=== PATIENT | female | born 1960 | race Caucasian/White ===

== ENCOUNTER 2023-09-29 16:08 | Emergency (ER) | payer OTHER, SELFPAY ==
[2023-09-29] VITALS (8 sets, daily range): BP systolic 137–156; BP diastolic 62–83; BMI 41.7
--- NOTE | 2023-09-29 16:24 | ED.GENMED ---
History of Present Illness
General
Chief Complaint: Chest Pain
Source: patient
Exam Limitations: none
Time Seen by Provider: 09/29/23 16:14
Nursing documentation reviewed up to this point in time: agreed with
History of Present Illness
History of Present Illness:
This is a 63-year-old female with a past medical history of prediabetes presenting to the emergency department today with concerns of an episode of chest pain. 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
she said she started to notice the pain. It starts in the epigastric region and goes up to chest. Patient states that she normally gets this pain when she gets gas and states that the pain will relieve with gas. Patient states that the pain was
described as sharp and lasted about an hour. Patient denies any radiation of the pain. Patient states that she then subsequently mentioned this to one of the people in the classroom he became very concerned and brought her to the nurse. They took
her blood pressure and noticed that her blood pressure was elevated, systolically 200. She was given an aspirin at the nurse's office, this did not help the pain. Patient states that as the ambulance is coming to pick her up, the pain resolved.
Patient denies any family history of cardiac disease. Patient denies any personal history of blood pressure problems, has never had to take anything to control her blood pressure. Patient's denies any current smoking or drug use. Patient states
that she does have 2 glasses of wine to drink daily. Patient denies any dizziness. Patient denies any nausea or vomiting, abdominal pain. Patient completely asymptomatic now and states that she feels back to her normal self. Patient also states
that she noticed some blood on her underwear today. Patient denies any burning with urination, any vaginal pain, any trauma to the area, patient does have a follow-up appointment with her web site project manager in October.
Past History
Past History
ED Past Medical History: None; Negative Asthma, HTN, Hypercholesterolemia or NIDDM
ED Past Surgical History: Cholecystectomy, and Other
Social History
Tobacco: Non-smoker
Alcohol: Daily (Wine 2 glasses of 5oz each)
Drug: None
Personal:
Living: with family
Family History
Family History: Unable to obtain (non-contributory)
Review of Systems
Review of Systems
All Other Systems: ROS reviewed and negative except as documented in HPI and ROS
Phy Exam
Physical Exam
Physical Exam:
General: Patient is well appearing and in no acute distress; non-toxic
Skin: Warm and dry, no rashes or lesions
Head: Normocephalic, atraumatic
Eyes: Sclera non-icteric. EOMs intact. PERRLA.
Cardiac: Regular rate and rhythm, no murmurs. No tenderness to palpation of the external chest wall.
Peripheral Vascular: No lower extremity swelling or edema.
Pulm: Normal respiratory effort, no wheezes, rales, rhonchi.
Abdomen: No abdominal tenderness to palpation, no palpable masses.
Neuro: CN II-XII intact, no focal neurologic deficits.
Psychiatric: Appropriate mood and affect.
Scores
Heart Score for Chest Pain Patients
STEMI patient?: No
History: Slightly or Non-Suspicious
ECG: Normal
Age: >45 - <65 years
Risk Factors: 1 or 2 Risk Factors
Troponin: </= Normal Limit
Heart Score for Chest Pain Patients: 2
Heart Score Risk: 2.5% MACE over next 6 weeks
Course
Orders/Labs/Results
Orders:
Orders
09/29/23 16:26
Electrocardiogram (*1) Urgent
Reason for Study: Chest Pain
EKG- Treatment ONCE
09/29/23 16:34
Basic Metabolic Panel Urgent
Complete Blood Count/With Diff Urgent
Troponin I Urgent
Urinalysis Reflex To Culture Urgent
Date Specimen was Collected: 09/29/23
Time Specimen was Collected: 16:33
09/29/23 19:50
Troponin I Urgent
09/29/23 19:58
Electrocardiogram (*1) Urgent
Reason for Study: Chest Pain
EKG- Treatment ONCE
Abnormal Lab Results
09/29/23
16:34
MPV 11.0 H fL
(7.4-10.4)
Creatinine 0.5 L mg/dL
(0.6-1.0)
Glucose 145 H mg/dl
(70-99)
09/29/23 16:34
09/29/23 16:34
Vital Signs
Initial and Last Documented VS:
Initial Vital Signs
Pulse Ox
98
09/29/23 16:19
Last Documented Vital Signs
Temp Pulse Resp BP Pulse Ox
97.9 F 86 19 149/71 97
09/29/23 16:27 09/29/23 18:45 09/29/23 18:45 09/29/23 18:00 09/29/23 18:45
MDM/Problems Addressed
Differential Diagnosis Includes:
Differentials include ACS, GERD, gastroenteritis, gastritis
MDM/Problems Addressed:
Chest pain
Chronic conditions affecting care:
Per patient, no past medical history
*Pulse Oximetry
Patient hypoxic: no
*EKG
Interpreted by ED Provider?: Yes
EKG Intrepretation Date: 09/29/23
Interpretation: normal
Heart Rate: 99
Rate: normal
Rhythm: sinus
Lostant: normal axis
Interval: normal interval, normal QT interval and normal IA interval
QRS Pattern: normal QRS
Ischemia: no ischemia
*Customs Manager Interpretation
Rate: normal
Interpretation: normal
Heart Rate: 89
Rhythm: sinus
*Critical Care Note
Total Time (30-74mins, 75-104mins- exclusive of procedures): Not Applicable
Data Reviewed
Review of Other/Old Records Reveals: Records (Reviewed ER physician documentation from 12/03/2022 where patient had gastritis)
Patient Management
Escalation/DeEscalation of care consider admission/obs:
This is a 63-year-old female with a past medical history of prediabetes presenting to the emergency department today with concerns of an episode of chest pain. 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
she said she started to notice the pain. Also had epigastric abdominal pain with it, patient said she normally has this sensation when she has gas. She subsequently had gas and the pain relieved and now has no symptoms and no concerns other than
her blood pressure being elevated.
Patient is very well appearing on exam, vitals stable, cardiac workup negative, repeat troponin negative. Considering patient has no symptoms, unremarkable workup, she is stable for discharge--did discuss importance of blood pressure management,
patient states she will follow up with primary. Considering pt's cardiac risk factors of hx of alcohol use, obesity, pre-diabetes, I did give her a referral for cardiology for stress testing and to establish care.
ED Attending Note
-
Portions of this chart may have been created with voice recognition software.� Occasional wrong word or��sound alike� substitutions may have occurred due to the inherent limitations of voice recognition software.
Discharge Plan
Departure
Patient with high blood pressure during this ER visit?: Yes
Condition: Good
Discharge Problem:
Chest pain, Acute epigastric pain
Instructions: Chest Pain CBC Follow Up, BLOOD PRESSURE
Prescriptions:
No Action
ibuprofen 600 MG tablet
600 mg PO Q6 Qty: 20 0RF
sucralfate [Carafate] 1 GM/10 ML suspension
1 gm PO QIDPRN PRN (Reason: upper abdominal pain) Qty: 560 0RF
pantoprazole 40 MG tablet,delayed release (DR/EC)
40 mg PO DAILY Qty: 30 0RF
pantoprazole [Protonix] 40 mg tablet,delayed release (DR/EC)
40 mg PO DAILY Qty: 10 0RF
Referrals:
Alton,Viri, PA [Family Provider] -
Latrell Taylor MD [Active] - Call in 1-3 days for appt
Activity Restrictions/Additional Instructions:
Please continue to monitor your symptoms. Please given you a referral to see a facilities engineering manager. Please call the attached number to schedule an appointment. Please state that you were seen here in the emergency department. Please follow-up with your
primary care provider regarding your elevated blood pressure.
Please return to the emergency department should you experience a recurrence or worsening of your symptoms, shortness of breath, dizziness, lightheadedness, syncopal episodes, confusion, weakness, facial droop, difficulty speaking, or any other
concerning signs or symptoms.
Interventions
Interventions:
*Risk Screen - Suicide Last Done: 09/29/23 16:27
*General Assessment Last Done: 09/29/23 16:31
*Neglect/Abuse Screening Last Done: 09/29/23 16:31
ED- Fall Risk Assessment Last Done: 09/29/23 16:31
*ED COVID-19 Vaccine History Last Done: 09/29/23 16:31
ED- Cardiac Assessment Last Done: 09/29/23 16:31
Discharge Date and Time
Print Language: ARABIC
[2023-09-29 16:48] LABS: % Basophils 0.3 % (0-2); % Eosinophils 1.5 % (0-6); % Immature Granulocytes 0.5 % (0-0.5); % Lymphocytes 28.1 % (20.5-51.1); % Monocytes 5.3 % (1.7-9.3); % Neutrophils 64.3 % (42.2-75.2); Absolute Eosinophils 0.1 10^3/uL (0-0.7); Absolute Lymphocytes 1.7 10^3/uL (1.2-3.4); Absolute Monocytes 0.3 10^3/uL (0.1-0.6); Hematocrit 38.1 % (37.0-47.0); Mean Corp Hgb Conc. 34.1 g/dL (33.0-37.0); Mean Corpuscular Hgb 28.8 pg (27.0-31.0); Mean Corpuscular Volume 84.5 fL (81.0-99.0); Nucleated Red Blood Cells % 0 %; Platelet Count 184 10^3/uL (130-400); Red Blood Cell Count 4.51 10^6/uL (4.20-5.40); Red Cell Dist. Width 12.6 % (11.5-14.5); White Blood Cell Count 6.2 10^3/uL (4.8-10.8)
[2023-09-29 16:57] LABS: Urine Albumin Negative (Neg - Trace); Urine Bilirubin Negative (Negative); Urine Character Slightly Cloudy (Clear); Urine Color Yellow; Urine Glucose Negative (Negative); Urine Ketone Negative (Negative); Urine Leukocyte Negative (Negative); Urine Nitrite Negative (Negative); Urine Occult Blood Negative (Negative); Urine Specific Gravity 1.025 (<1.030); Urine Urobilinogen Negative (Neg - 1+)
[2023-09-29 17:10] LABS: Blood Urea Nitrogen 17 mg/dl (7-17); Calcium 9.2 mg/dl (8.4-10.2); Carbon Dioxide 23 mmol/L (22-30); Chloride 105 mmol/L (98-107); Estimated Creatinine Clearance 124 ml/min; Glucose 145 mg/dl (70-99); Sodium 137 mmol/L (135-145); eGFR > 60.00
[2023-09-29 17:13] LABS: Troponin I < 0.012 ng/ml
[2023-09-29 20:31] LABS: Troponin I < 0.012 ng/ml
== END 2023-09-29 21:30 | disposition home or self-care (01) ==
LOC: EMR 16:08
PROVIDERS: Physician Assistant; EMERGENCY PHYSICIAN Emergency Medicine; FAMILY PHYSICIAN Physician Assistant Medical
DX: R10.13 Epigastric pain (principal); R07.89 Other chest pain; R73.03 Prediabetes; Z87.891 Personal history of nicotine dependence; Z86.16 Personal history of COVID-19; Z90.49 Acquired absence of other specified parts of digestive tract
CPT/HCPCS: 99284; 80048; 81003; 84484; 85025; 93005

== ENCOUNTER → 2023-10-10 07:08 | Outpatient (REF) | payer OTHER, SELFPAY ==
--- NOTE | 2023-10-10 08:20 | CARDSERVLU ---
Echocardiogram with Lumason completed after protocol screening completed. Allergies verified.
Patent IV site: _Rt AC____
IV site flushed with 0.9% NaCl pre and post administration.
Diluted bolus method utilized to enhance visualization of ventricular rosado.
Total volume given: __2.0__ mL
Patient tolerated all procedures well without complications.
#22 lata placed Rt AC. Lumason given. INT removed. dsg applied and pressure held.
== END ==
LOC: RCS 07:08
PROVIDERS: ATTENDING PHYSICIAN Internal Medicine Cardiovascular Disease; FAMILY PHYSICIAN Physician Assistant Medical
DX: R00.0 Tachycardia, unspecified (principal); R07.89 Other chest pain; R10.13 Epigastric pain
CPT/HCPCS: 93017; 93306; Q9950

== ENCOUNTER 2023-10-28 17:04 | Emergency (ER) | payer OTHER, SELFPAY ==
[2023-10-28 17:11] VITALS: BP 174/95
[2023-10-28 17:42] LABS: % Basophils 0.4 % (0-2); % Eosinophils 0.3 % (0-6); % Immature Granulocytes 0.4 % (0-0.5); % Lymphocytes 4.6 % (20.5-51.1); % Monocytes 6.2 % (1.7-9.3); % Neutrophils 88.1 % (42.2-75.2); Absolute Lymphocytes 0.4 10^3/uL (1.2-3.4); Absolute Monocytes 0.5 10^3/uL (0.1-0.6); Absolute Neutrophils 6.9 10^3/uL (1.4-6.5); Hematocrit 38.9 % (37.0-47.0); Hemoglobin 13.6 g/dL (12.0-16.0); Mean Corpuscular Hgb 29.1 pg (27.0-31.0); Mean Corpuscular Volume 83.1 fL (81.0-99.0); Mean Platelet Volume 10.4 fL (7.4-10.4); Nucleated Red Blood Cells % 0 %; Platelet Count 170 10^3/uL (130-400); Red Blood Cell Count 4.68 10^6/uL (4.20-5.40); Red Cell Dist. Width 12.8 % (11.5-14.5); White Blood Cell Count 7.8 10^3/uL (4.8-10.8)
[2023-10-28 17:46] VITALS: BP 140/81
[2023-10-28 17:59] LABS: ALT (SGPT) 33 U/L (0-35); AST (SGOT) 31 U/L (14-36); Albumin 4.4 g/dl (3.5-5.0); Alkaline Phosphatase 58 U/L (38-126); Blood Urea Nitrogen 13 mg/dl (7-17); Calcium 9.2 mg/dl (8.4-10.2); Carbon Dioxide 26 mmol/L (22-30); Chloride 99 mmol/L (98-107); Glucose 124 mg/dl (70-99); Lipase 54 U/L (23-300); Sodium 134 mmol/L (135-145); Total Bilirubin 0.6 mg/dl (0.2-1.3); Total Protein 6.9 g/dl (6.3-8.2); eGFR > 60.00
[2023-10-28 18:00] VITALS: BP 150/86
[2023-10-28 18:00] LABS: Troponin I < 0.012 ng/ml
--- NOTE | 2023-10-28 18:15 | ED.GENMED ---
History of Present Illness
General
Chief Complaint: Heart Rate Problem
Time Seen by Provider: 10/28/23 17:42
History of Present Illness
History of Present Illness:
63-year-old female presenting with fever, chills, congestion starting today. Patient states that she was at her PCPs office and was diagnosed with COVID. Patient states that she is also been having left upper quadrant abdominal pain for the past 2
weeks after she had an echocardiogram patient states the multi care technician had to press hard in the area to obtain the views. Patient reports bilateral flank pain starting this morning but none now. Patient denies nausea, vomiting, diarrhea, chest pain
or shortness of breath. Patient states that she has urinary urgency but no dysuria or hematuria.
Past History
Past History
ED Past Medical History: None; Negative Asthma, HTN, Hypercholesterolemia or NIDDM
ED Past Surgical History: Cholecystectomy, and Other
Social History
Tobacco: Non-smoker
Alcohol: Daily (Wine 2 glasses of 5oz each)
Drug: None
Personal:
Living: with family
Family History
Family History: Unable to obtain (non-contributory)
Phy Exam
Physical Exam
Physical Exam:
General: Alert, no acute distress
Head: NCAT
Eyes: clear conjunctiva
Neck: supple
Cardiac: Tachycardic, regular rhythm, no murmur
Chest wall: Left lower rib tenderness to palpation. No overlying erythema or ecchymosis
Lungs: clear to auscultation bilaterally. No wheezes, rales, or rhonchi. Speaking full unlabored sentences. No respiratory distress.
Abdomen: soft, nondistended nontender. No rebound or guarding. No CVA tenderness bilaterally
MSK: no lower extremity edema bilaterally. No deformity
Skin: warm, dry
Neuro: Alert and oriented x3. no focal deficits
Course
Orders/Labs/Results
Orders:
Orders
10/28/23 17:26
CMP [Comprehensive Metabolic Panel] Urgent
Complete Blood Count/With Diff Urgent
Lipase Urgent
Comment: ADD ON
Troponin I Urgent
10/28/23 17:33
EKG [Electrocardiogram (*1)] Urgent
Reason for Study: Abdominal Pain
10/28/23 17:39
Add On- LAB Urgent
Tests Added?: lipase
10/28/23 17:44
CXR Port [CR Chest Portable - 1 View] Urgent
Comment:
Reason For Exam: covid, sob
Reason Study Needs to be Portable: Other
10/28/23 18:13
Ibuprofen [Motrin] 800 mg PO NOW STA
10/28/23 18:15
0.9% Sodium Chloride 1000 ml [Nss] 1,000 ml IV BOLUS
10/28/23 18:39
UA Reflex to Culture [Urinalysis Reflex To Culture] Urgent
Date Specimen was Collected: 10/28/23
Time Specimen was Collected: 18:16
10/28/23 19:42
0.9% Sodium Chloride 1000 ml [Nss] 1,000 ml IV BOLUS
10/28/23 21:52
Acetaminophen [Tylenol] 1,000 mg .ROUTE .STK-MED ONE
Acetaminophen [Tylenol] 1,000 mg PO NOW STA
Abnormal Lab Results
10/28/23
17:26
Absolute Neuts (auto) 6.9 H 10^3/uL
(1.4-6.5)
Absolute Lymphs (auto) 0.4 L 10^3/uL
(1.2-3.4)
Neutrophils % 88.1 H %
(42.2-75.2)
Lymphocytes % 4.6 L %
(20.5-51.1)
Sodium 134 L mmol/L
(135-145)
Glucose 124 H mg/dl
(70-99)
10/28/23 17:26
10/28/23 17:26
Vital Signs
Initial and Last Documented VS:
Initial Vital Signs
Temp Pulse Resp BP Pulse Ox
100.2 F 142 18 174/95 96
10/28/23 17:11 10/28/23 17:11 10/28/23 17:11 10/28/23 17:11 10/28/23 17:11
Last Documented Vital Signs
Temp Pulse Resp BP Pulse Ox
98.6 F 99 19 102/64 96
10/28/23 20:07 10/28/23 21:37 10/28/23 21:30 10/28/23 21:00 10/28/23 21:30
MDM/Problems Addressed
Differential Diagnosis Includes:
Patient presents to the Emergency Department with fever, chills, congestion____
Number and Complexity of Problems Addressed at the Encounter
� Chronic conditions affecting care:
� Acute Exacerbation and/or Progression of Chronic Illness:
� Differential Diagnosis includes: COVID, dehydration, UTI, pyelonephritis
Amount and/or Complexity of Data to be Reviewed and Analyzed
� I performed an independent evaluation of and my interpretation is:
EKG: EKG shows sinus tachycardia at 130bpm with NM 136 QTc 441 no acute ischemic changes
CT:
Xrays: CXR clear with no focal infiltrate or consoldiation
Laboratory Studies: UA negative for UTI. Lipase, troponin, WBC within normal limits
Other:
� Review of other/old records reveals:
� Clinical information was obtained by an independent historian:
� Prescriptions/Medications Considered but not given:
� Further testing considered but not performed:
Risk of Complications and/or Morbidity or Mortality of Patient Management
� Social Determinants of health affecting care:
� Discussion with other providers (PCP, Hospitalists, Consultants, etc):
� Escalation of care including admission/observation vs risk of discharge considered: 63yoF presenting with fever, chills, diffuse body aches and congestion starting today. Patient seen at PCP, diagnosed with COVID and sent to the ER for further
evaluation. Patient reports left lower rib pain ever since she received echocardiogram 2 weeks ago. Patient denies chest pain or abdominal pain. On arrival, patient tachycardic to 130 with low grade fever. Workup reviewed, CXR clear with no focal
infiltrate or consolidation, labs otherwise unremarkable, UA shows no UTI. Heart rate improved to 99bpm with fluids and ibuprofen. SpO2 within normal limits. Discussed results with patient at bedside, stable for discharge with Paxlovid and PCP
follow up.
*Critical Care Note
Total Time (30-74mins, 75-104mins- exclusive of procedures): Not Applicable
ED Attending Note
-
Portions of this chart may have been created with voice recognition software.� Occasional wrong word or��sound alike� substitutions may have occurred due to the inherent limitations of voice recognition software.
Discharge Plan
Departure
Patient Disposition: Home (Routine Discharge)
Date of Disposition: 10/28/23
Time of Disposition: 21:43
Patient with high blood pressure during this ER visit?: Yes
Discharge Problem:
COVID
Instructions: BLOOD PRESSURE
Prescriptions:
New
Paxlovid 300 mg (150 mg x 2)-100 mg tablets,dose pack
See Rx Instructions .ROUTE .COMPLEX Qty: 30 0RF
Rx Instructions:
take TWO 150 mg tablets of nirmatrelvir with ONE 100 mg tablet of ritonavir twice daily for 5 days
No Action
ibuprofen 600 MG tablet
600 mg PO Q6 Qty: 20 0RF
sucralfate [Carafate] 1 GM/10 ML suspension
1 gm PO QIDPRN PRN (Reason: upper abdominal pain) Qty: 560 0RF
pantoprazole 40 MG tablet,delayed release (DR/EC)
40 mg PO DAILY Qty: 30 0RF
pantoprazole [Protonix] 40 mg tablet,delayed release (DR/EC)
40 mg PO DAILY Qty: 10 0RF
Referrals:
Abi Rosales PA-C [Family Provider] -
Activity Restrictions/Additional Instructions:
Take tylenol 975mg every 6 hours and/or ibuprofen 800mg every 8 hours with food as needed for pain
Take Paxlovid as prescribed
Follow up with primary care doctor within 1 week
Return to the emergency department for shortness of breath or new/worsening symptoms
Interventions
Interventions:
*Risk Screen - Suicide Last Done: 10/28/23 17:59
*General Assessment Last Done: 10/28/23 17:59
*Neglect/Abuse Screening Last Done: 10/28/23 17:59
ED- Fall Risk Assessment Last Done: 10/28/23 17:59
*Nursing Disposition Last Done: 10/28/23 21:55
ED- Cardiac Assessment Last Done: 10/28/23 17:59
ED- Pulmonary Assessment Last Done: 10/28/23 17:59
Discharge Date and Time
Discharge Date/Time: 10/28/23 21:55
Print Language: [id number]
[2023-10-28] MEDS: NSS 1000 IV ×2 (18:42→20:05)
[2023-10-28] MEDS: MOTRIN 800 MG PO (18:42)
[2023-10-28 18:43] VITALS: BMI 42.3
[2023-10-28 19:00] VITALS: BP 136/64
[2023-10-28 19:27] LABS: Urine Albumin Negative (Neg - Trace); Urine Bilirubin Negative (Negative); Urine Character Clear (Clear); Urine Color Yellow; Urine Glucose Negative (Negative); Urine Ketone Negative (Negative); Urine Leukocyte Negative (Negative); Urine Nitrite Negative (Negative); Urine Occult Blood Negative (Negative); Urine Urobilinogen Negative (Neg - 1+); Urine pH 6.5 (5.0-9.0)
[2023-10-28 21:00] VITALS: BP 102/64
[2023-10-28] MEDS: TYLENOL 1000 MG PO (21:53)
== END 2023-10-28 21:55 | disposition home or self-care (01) ==
LOC: EMR 17:04
PROVIDERS: Physician Assistant Medical; EMERGENCY PHYSICIAN Emergency Medicine; FAMILY PHYSICIAN Physician Assistant Medical
DX: U07.1 COVID-19 (principal); Z90.49 Acquired absence of other specified parts of digestive tract
CPT/HCPCS: 99283; 96360; 71045; 80053; 81003; 83690; 84484; 85025; 93005

== ENCOUNTER → 2023-11-25 09:42 | Outpatient (REF) | payer OTHER, SELFPAY | LOC: WDC 09:42 | PROVIDERS: ATTENDING PHYSICIAN Nurse Practitioner Adult Health; FAMILY PHYSICIAN Physician Assistant Medical | DX: N64.4 Mastodynia (principal) | CPT/HCPCS: 76642; 77062; 77066 ==

== ENCOUNTER → 2024-12-21 18:58 | Outpatient (REF) | payer OTHER, SELFPAY | LOC: WDC 18:58 | PROVIDERS: ATTENDING PHYSICIAN Nurse Practitioner Adult Health; FAMILY PHYSICIAN Physician Assistant Medical | DX: Z12.31 Encounter for screening mammogram for malignant neoplasm of breast (principal) | CPT/HCPCS: 77063; 77067 ==